=== PATIENT | male | born 1975 | race Two or more races ===

== ENCOUNTER 2024-03-26 11:17 | Emergency (ER) | payer MEDICAID, SELFPAY ==
--- NOTE | ~2024-03-26 | XR_ITS ---
EXAMINATION: XR FOOT, RIGHT CLINICAL INFORMATION: Pain COMPARISON: None available. TECHNIQUE: AP, lateral, and oblique views of the right foot. FINDINGS: The bones and soft tissues are normal. No fracture. Alignment is anatomic. Joint spaces are maintained. XR/XR foot RT min 3V IMPRESSION: No radiographic evidence of acute fracture or dislocation.
--- NOTE | 2024-03-26 11:26 | ED_ITS ---
HPI - General Adult General Chief complaint: General Medical Stated complaint: gout Time Seen by Provider: 03/26/24 15:14 History of Present Illness HPI narrative: Patient complains of left foot pain with a flare of his gout in the left 1st metatarsal area at the base of the big toe, it has been going on for 2-3 days, he denies any injury, he has no other complaint he has no other swollen joints Related Data Previous Rx's ?Medication ?Instructions ?Recorded metoprolol succinate 25 mg capsule 25 mg PO DAILY #30 ea 03/26/24 sprinkle, ext. release 24 hr naproxen 500 mg tablet (Naprosyn) 500 mg PO BID PRN pain #14 tabs 03/26/24 oxycodone 5 mg tablet 5 mg PO Q6H PRN pain #14 tabs 03/26/24 prednisone 20 mg tablet 60 mg (3 x 20 mg) PO DAILY 5 days 03/26/24 #15 tabs Allergies Allergy/AdvReac Type Severity Reaction Status Date / Time lisinopril Allergy Angioedema Verified 03/26/24 11:32 [facility] Past Medical History Source: nursing notes reviewed Social History Social History Advance Directives: No Advance Directives Information Provided: No Physical Exam ED Vital Signs: Vital Signs - 24 hr 03/26/24 11:27 Temperature 98.7 F Pulse Rate 125 H Respiratory Rate 18 Blood Pressure 181/126 H Pulse Oximetry 97 Oxygen Delivery Method Room Air BMI result Body Mass Index 30.1 Elevated blood pressure is noted general appearance is no distress, comfortable cooperative The head is normocephalic atraumatic Neck is supple Chest is clear to auscultation bilateral Heart no murmur Abdomen soft nontender Extremities full range of motion x4 including the left MTP joint which is red and swollen consistent with his history of gout, there is no pedal edema it is neurovascular intact distal Other extremities normal Cranial nerves 2-12 intact as tested, balance is normal he walks with a limping gait, motor is 5 over4 times 4 for sensation is intact and symmetrical, cerebellar exam is normal with [id number] Course Course Course Narrative: This is an RME: Additional HPI, ROS, PE not included below will be deferred to primary provider. RME assessment and note performed by: Lien Rick PA-C This is a 45-upfa-yxt-male, with hx of gout, who presents to the ER with complaints of right foot pain x2 days. No trauma or injury. He has a history of gout in symptoms feel similar. Patient states that he drinks alcohol daily. Tenderness palpation along the right 1st MTP with warmth. Patient's blood pressure 181/126, pulse 125, he is afebrile. He states that he drank alcohol last night. He states that he has not taken his blood pressure medication in 2 months. I stressed the importance of taking his blood pressure medicine as his blood pressure is very high. He is asymptomatic, denies any dizziness, blurred vision, chest pain. Plan: Labs, x-ray Patient with gout is treated with medicines that if worked for him before, I did not give the colchicine as he had some mild elevation of his LFTs He has a regular drinker so I advised him to see his doctor and discuss ways of safely quitting his daily alcohol consumption His pulse was noted to be tachycardic with a rate of around 120, bowel without a feeling of palpitations dizziness or chest pain He did say his pulse has been elevated before we did an EKG and today it was 120, EKG showed sinus tachycardia with a rate of 114, no acute ischemic changes or ST elevations, QT was 346 He had no chest pain no shortness of breath, he has no stroke symptoms he has no unilateral weakness,, he is not dehydrated and is drinking plenty of fluids his only complaint is the gout I discussed possible alcohol withdrawal and he had no tremor now and he is going to go home and have a drink so I did not treat him for possible alcohol withdrawal as he is not ready to quit now I did give him his metoprolol which he has not been taking and advised him to continue his blood pressure meds and follow closely with primary care doctor He is discharged with a diagnosis of sinus tachycardia, but without any evidence of ischemic change, possibly related to early alcohol withdrawal but no tremor He was treated for gout and he was discharged ambulating easily, with no evidence of stroke or heart attack, there is no hypertensive emergency Medications Administered Discontinued Medications Generic Name Dose Route Start Last Admin Trade Name Letha PRN Reason Stop Dose Admin Acetaminophen 975 mg 03/26/24 15:50 03/26/24 16:14 Acetaminophen 325 Mg Tablet PO 03/26/24 15:51 975 mg ONCE ONE Administration Colchicine 1.2 mg 03/26/24 15:50 03/26/24 16:14 Colchicine 0.6 Mg Tablet PO 03/26/24 15:51 Not Given ONCE ONE Metoprolol Succinate 25 mg 03/26/24 16:40 03/26/24 16:59 Metoprolol Succinate Er 25 Mg Tab.Er.24h PO 03/26/24 16:41 25 mg ONCE ONE Administration Protocol Naproxen 500 mg 03/26/24 15:50 03/26/24 16:14 Naproxen 500 Mg Tablet PO 03/26/24 15:51 500 mg ONCE ONE Administration Prednisone 60 mg 03/26/24 15:50 03/26/24 16:15 Prednisone 20 Mg Tablet PO 03/26/24 15:51 60 mg ONCE ONE Administration Medical Decision Making Lab Data [facility] Lab Attestation statement: I reviewed the patient's lab results. 03/26/24 11:55 03/26/24 11:55 Labs: Lab Results 03/26/24 Range/Units 11:55 WBC 10.7 (4.8-10.8) X10*3/uL RBC 4.77 (4.60-5.80) X10*6/uL Hgb 16.3 (14.0-18.0) g/dl Hct 45.8 (42.0-52.0) % MCV 96.0 (80.0-98.0) fL MCH 34.2 H (27.0-33.0) pg MCHC 35.6 (31.0-36.0) g/dl RDW 12.3 (11.0-16.0) % Plt Count 261 (160-400) X10*3/uL MPV 9.7 (9.4-12.4) fL Immature Gran % (Auto) 0.5 H (0.0-0.4) % Neut % (Auto) 72.1 (45-73) % Lymph % (Auto) 16.3 L (20-40) % [place] % (Auto) 8.0 (2-11) % Eos % (Auto) 2.1 (0-4) % Baso % (Auto) 1.0 (0-2) % Lymph # (Auto) 1.8 (1.2-4.9) X10*3/uL [place] # (Auto) 0.9 (0.1-1.2) X10*3/uL Eos # (Auto) 0.2 (0.0-0.4) X10*3/uL Baso # (Auto) 0.1 (0.0-0.2) X10*3/uL Abs Immat Gran (auto) 0.05 H (0.00-0.03) X10*3/uL Absolute Neuts (auto) 7.7 (2.0-8.3) x10*3/uL Absolute Nucleated RBC 0.000 (0.0-0.012) X10*3/uL Nucleated RBC % (auto) 0.0 (0.0-0.2) /100WBC ESR 4 (0-15) MM/HR Sodium 140 (135-145) mmol/L Potassium 4.1 (3.3-5.1) mmol/L Chloride 107 (96-108) mmol/L Carbon Dioxide 24 (22-29) mmol/L Anion Gap 13 (12-20) BUN 5 L (9-16) mg/dL Creatinine 0.84 (0.5-1.4) mg/dL Estim Creat Clear Calc 124.5 Estimated GFR > 60 Random Glucose 138 H (60-115) mg/dL Uric Acid 8.3 H (3.4-7.0) mg/dL Calcium 9.2 (8.4-10.2) mg/dL Total Bilirubin 0.8 (0.0-1.0) mg/dL AST 59 H (5-37) U/L ALT 85 H (0-40) U/L Alkaline Phosphatase 128 H (39-117) U/L C-Reactive Protein 0.28 (< or = 0.50) mg/dL Total Protein 7.5 (6.5-8.0) g/dL Albumin 4.1 (3.5-5.0) g/dL Ethyl Alcohol < 10 mg/dL Discharge Plan Discharge Clinical Impression: Gout flare Patient Disposition: Home, Self-Care Additional Instructions: your having a flare of her gout and we are treating it with your medications that you have used before which are prednisone Naprosyn Your liver enzymes were elevated possibly from alcohol use so I did not prescribe colchicine as in some cases it can make the liver worse Return any time if worse Follow with primary doctor you have not been taking your blood pressure medication regularly, and high blood pressure over the course of time can cause strokes heart disease blindness and many other serious problems so the best plan is to restart your blood pressure medicines which you said you have at home Your blood pressure was elevated at 1 80/126, this could be because of pain or stress in the ER so it should be rechecked when you are pain free and resting comfortably and taking your medications and if it continues to be high follow with her doctor to decide if you need an adjustment in blood pressure medication As you were unsure of the name and dose of 1 of your medicines call your primary doctor and he will give you a prescription for your other blood pressure medication Your heart rate was elevated in the emergency room, which can happen when a person is withdrawing from alcohol, and as you are drinking regularly and as your liver tests were already somewhat elevated you may want to consider stopping alcohol safely, there are places that can help you stop drinking and your doctor can help you with that Prescriptions: New prednisone 20 mg tablet 60 mg PO DAILY 5 Days Qty: 15 0RF naproxen [Naprosyn] 500 mg tablet 500 mg PO BID PRN (Reason: pain) Qty: 14 0RF oxycodone 5 mg tablet 5 mg PO Q6H PRN (Reason: pain) Qty: 14 0RF Rx Instructions: Partial Fill upon patient request. metoprolol succinate 25 mg capsule,alba,ER 24hr 25 mg PO DAILY Qty: 30 0RF Interventions: ED Discharge Assessment Last Done: 03/26/24 16:48 Discharge Date/Time: 03/26/24 17:06 Print Language: Indian
[2024-03-26 11:27] VITALS: BP 181/126; PULSE 125; RESP 18; TEMP 37.1; O2SAT 97; BMI 30.1
[2024-03-26 11:59] LABS: MANUAL DIFF FLAG NO
[2024-03-26 12:00] LABS: Basophils Absolute Auto 0.1 X10*3/uL (0.0-0.2); Eosinophils Absolute Auto 0.2 X10*3/uL (0.0-0.4); Eosinophils Percent Auto 2.1 % (0-4); Hematocrit 45.8 % (42.0-52.0); Hemoglobin 16.3 g/dl (14.0-18.0); Imm Gran Abs Auto 0.05 X10*3/uL (0.00-0.03); Imm Gran Pct Auto 0.5 % (0.0-0.4); Lymphocytes Absolute Auto 1.8 X10*3/uL (1.2-4.9); Lymphocytes Percent Auto 16.3 % (20-40); Mean Corpuscular HGB Conc 35.6 g/dl (31.0-36.0); Mean Corpuscular Hemoglobin 34.2 pg (27.0-33.0); Mean Platelet Volume 9.7 fL (9.4-12.4); Monocytes Absolute Auto 0.9 X10*3/uL (0.1-1.2); Neutrophils Absolute Auto 7.7 x10*3/uL (2.0-8.3); Neutrophils Percent Auto 72.1 % (45-73); Platelet Count 261 X10*3/uL (160-400); Red Blood Count 4.77 X10*6/uL (4.60-5.80); Red Cell Distribution Width 12.3 % (11.0-16.0); White Blood Count 10.7 X10*3/uL (4.8-10.8)
[2024-03-26 12:15] LABS: Alanine Aminotransferase 85 U/L (0-40); Albumin Level 4.1 g/dL (3.5-5.0); Alkaline Phosphatase 128 U/L (39-117); Anion Gap 13 (12-20); Aspartate Amino Transferase 59 U/L (5-37); Bilirubin Total 0.8 mg/dL (0.0-1.0); Blood Urea Nitrogen 5 mg/dL (9-16); C Reactive Protein 0.28 mg/dL (< or = 0.50); Calcium 9.2 mg/dL (8.4-10.2); Carbon Dioxide 24 mmol/L (22-29); Chloride 107 mmol/L (96-108); Creatinine Clr Calc Pharmacy 124.5; Estimated Glomerular Filt Rate > 60; Ethanol < 10 mg/dL; Glucose Random 138 mg/dL (60-115); Potassium 4.1 mmol/L (3.3-5.1); Sodium 140 mmol/L (135-145); Total Protein 7.5 g/dL (6.5-8.0); Uric Acid 8.3 mg/dL (3.4-7.0)
[2024-03-26 12:37] LABS: Erythrocyte Sedimentation Rate 4 MM/HR (0-15)
[2024-03-26 16:05] VITALS: BP 191/122; BP 200/128; PULSE 121; RESP 18; TEMP 36.2; O2SAT 97
--- NOTE | 2024-03-26 16:05 | ECG_ITS ---
Test Reason : TACYCARDIA Blood Pressure : / mmHG Vent. Rate : 114 BPM Atrial Rate : 114 BPM P-R Int : 132 ms QRS Dur : 096 ms QT Int : 346 ms P-R-T Axes : 044 -12 026 degrees QTc Int : 476 ms Sinus tachycardia with Fusion complexes Inferior infarct , age undetermined Abnormal ECG No previous ECGs available Referred By: Joshua Hernández Electronically Signed By:Misha Murrieta
--- NOTE | 2024-03-26 16:05 | PC.NURSE ---
when obtaining d/c vitals - pt found to be tachycardic as well as hypertensive. BP taken in both upper extremities. pt denies chest pain/palpitations. no sob/wob noted. respirations even and unlabored. provider notified/aware.
[2024-03-26] MEDS: NaPROXEN 500 MG TABLET PO (16:14)
[2024-03-26] MEDS: Acetaminophen 325 MG TABLET 975 MG PO (16:14)
[2024-03-26] MEDS: predniSONE 20 MG TABLET 60 MG PO (16:15)
--- NOTE | 2024-03-26 16:16 | PC.NURSE ---
pt medicated per provider order.
[2024-03-26 16:48] VITALS: BP 200/128; PULSE 121; RESP 18; TEMP 36.2; O2SAT 97
[2024-03-26] MEDS: Metoprolol Succinate ER 25 MG TAB.ER.24H PO (16:59)
--- NOTE | 2024-03-26 17:07 | PC.NURSE ---
pt medicated per provider order. provider okay w/ discharging pt with most recent vitals. pt provided w/ d/c instructions/paperwork.
== END 2024-03-26 17:06 | disposition home or self-care (01) ==
PROVIDERS: Physician Assistant Medical; Emergency Provider Student in an Organized Health Care Education/Training Program
DX: M10.9 Gout, unspecified (principal); M79.671 Pain in right foot; I10 Essential (primary) hypertension; Z91.148 Patient's other noncompliance with medication regimen for other reason
CPT/HCPCS: 36415; 73630; 80053; 80307; 84550; 85025; 85652; 86140; 93005; 99283; 99284

== ENCOUNTER → 2024-03-26 16:05 | Outpatient (BNV) | payer MEDICAID, SELFPAY | PROVIDERS: Emergency Provider Student in an Organized Health Care Education/Training Program; Visit Provider Internal Medicine Cardiovascular Disease | DX: R00.0 Tachycardia, unspecified (principal) | CPT/HCPCS: 93010 ==

== ENCOUNTER 2025-08-13 15:15 | Emergency (ER) | payer OTHER, SELFPAY ==
[2025-08-13] VITALS (7 sets, daily range): BP systolic 163–203; BP diastolic 102–140; PULSE 95–130; RESP 14–20; TEMP 36.6–36.8; O2SAT 96–98; BMI 34.0
--- NOTE | 2025-08-13 | ECG_ITS ---
Test Reason : HTN Blood Pressure : */* mmHG Vent. Rate : 120 BPM Atrial Rate : 120 BPM P-R Int : 142 ms QRS Dur : 84 ms QT Int : 340 ms P-R-T Axes : 6 16 6 degrees QTcB Int : 480 ms Sinus tachycardia Cannot rule out Anterior infarct , age undetermined Abnormal ECG When compared with ECG of 26-Mar-2024 16:19, Fusion complexes are no longer Present Referred By: Generic ED Physician Electronically Signed By: Misha Murrieta
--- NOTE | ~2025-08-13 | XR_ITS ---
CLINICAL HISTORY: pain 3 view left foot Comparison: None provided Findings: No fractures or dislocations. Well corticated irregularities in the 5th proximal phalanx are likely sequelae of remote trauma. Mild degenerative changes in the distal forefoot. Mild achilles tendon enthesopathy. No ankle effusion. No radiopaque foreign body. Diffuse dorsal soft tissue swelling. IMPRESSION: 1. Diffuse dorsal soft tissue swelling. 2. No acute fracture or dislocation. This document has been electronically signed by: Tracie Ahn DO on 08/13/2025 16:34:49
[2025-08-13 15:37] LABS: MANUAL DIFF FLAG NO
[2025-08-13 15:40] LABS: Hematocrit 46.2 % (42.0-52.0); Hemoglobin 16.4 g/dl (14.0-18.0); Imm Gran Abs Auto 0.07 X10*3/uL (0.00-0.03); Imm Gran Pct Auto 0.6 % (0.0-0.4); Lymphocytes Absolute Auto 1.2 X10*3/uL (1.2-4.9); Mean Corpuscular HGB Conc 35.5 g/dl (31.0-36.0); Mean Corpuscular Hemoglobin 33.4 pg (27.0-33.0); Mean Corpuscular Volume 94.1 fL (80.0-98.0); NRBC Abs Auto 0.000 X10*3/uL (0.0-0.012); NRBC Pct Auto 0.0 /100WBC (0.0-0.2); Platelet Count 197 X10*3/uL (160-400); Red Blood Count 4.91 X10*6/uL (4.60-5.80); White Blood Count 10.9 X10*3/uL (4.8-10.8)
[2025-08-13 16:02] LABS: Troponin-I High Sensitivity 4.8 ng/L (<3.5-35.0)
[2025-08-13 16:04] LABS: Alanine Aminotransferase 118 U/L (0-40); Albumin Level 4.2 g/dL (3.5-5.0); Alkaline Phosphatase 198 U/L (39-117); Anion Gap 15 (12-20); Aspartate Amino Transferase 97 U/L (5-37); Blood Urea Nitrogen 8 mg/dL (9-16); Calcium 9.1 mg/dL (8.4-10.2); Carbon Dioxide 23 mmol/L (22-29); Chloride 101 mmol/L (96-108); Creatinine Clr Calc Pharmacy 120.0; Estimated Glomerular Filt Rate > 60; Magnesium 1.7 mg/dL (1.6-2.6); Potassium 3.8 mmol/L (3.3-5.1); Sodium 135 mmol/L (135-145); Total Protein 7.7 g/dL (6.5-8.0); Uric Acid 8.7 mg/dL (3.4-7.0)
--- OUTSIDE RECORDS SUMMARY | 2025-08-13 16:17 | XMS_ITS | Clinical Summary ---
Author Organization [facility] Address [address] [place] [address] Phone Care Team Providers Care Bundle Shaker Name Role Phone Physician, Pcp Unknown Primary Care Provider June vailable Allergies No known active allergies Medications No known medications Active Problems No known active problems Social History Tobacco Use Types Packs/Day Years Used Date Smoking Tobacco: Never Assessed Sex and Gender Information Value Date Recorded Sex Assigned at Male 01/12/2025 7:19 AM EDT Legal Sex Male 6:35 AM EDT Gender Identity Male 01/12/2025 7:19 AM EDT Sexual Orientation Straight 01/12/2025 7: 19 AM EDT Obstetrics History Last Filed Vital Signs Vital Sign Reading Time Taken Comments Blood Pressure 157/101 01/12/2025 6:37 AM EDT Pulse 101 01/12/2025 6:37 AM EDT Temperature 36.5 C (97.7 F) 01/12/2025 6:37 AM EDT Respiratory Rate 18 01/12/2025 6:37 AM EDT Oxygen Saturation 98% 01/12/2025 6:37 AM EDT Inhaled Oxygen Concentration - - Weight 90.7 kg (200 lb) 01/12/2025 6:37 AM EDT Height 177.8 cm (5' 10 ) 01/12/2025 6:37 AM EDT Body Mass Index 28.7 01/12/2025 6:37 AM EDT Plan of Treatment Health Maintenance Due Date Last Done Comments Colorectal Cancer Screening: Colonoscopy 1975 Hepatitis A Vaccines (1 of 2 - Risk 2-dose series) 1994 Hepatitis B Vaccines (3 of 3 - 19+ 3-dose series) 05/30/2021 04/04/2021, 02/26/1996 Depression Screening 11/02/2024 Cholesterol Screening (Lipid Panel) 01/12/2025 HIV Screening 01/12/2025 Hepatitis C Screening 01/12/2025 Social Influencers of Health Screening 01/12/2025 Pneumococcal Vaccine: 50+ Years (1 of 1 - PCV) 2025 Zoster Vaccines (1 of 2) 2025 COVID-19 Vaccine (3 - 2024-2 6 season) 2025 11/20/2020, 10/30/2020 Influenza Vaccine (#1) 2025 DTaP,Tdap,and Td Vaccines (2 - Td or Tdap) 02/24/2028 02/23/2018 RSV Immunization Adult Patients (1 - 1-dose 75+ series) 2050 MMR Vaccines Aged Out 04/04/2021 No longer eligi ble based on patient's age to complete this topic HIB Vaccines Aged Out No longer eligi ble based on patient's age to complete this topic HPV Vaccines Aged Out No longer eligi ble based on patient's age to complete this topic IPV Vaccines Aged Out No longer eligi ble based on patient's age to complete this topic Meningococcal ACWY Vaccine Aged Out N o longer eligible based on patient's age to complete this topic Meningococcal B Vaccine Aged Out No l onger eligible based on patient's age to complete this topic RSV Immunization Patients Under 20 months Aged Out No longer eligible b ased on patient's age to complete this topic Varicella Vaccines Aged Out No longer eligible based on patient's age to complete this topic Insurance MEDICAID - [place] Care Teams Bundle Shaker Relationship Specialty Start Date End Date Physician, Pcp Unknown PCP - General 01/12/25
--- OUTSIDE RECORDS SUMMARY | 2025-08-13 16:17 | XMS_ITS | Clinical Summary ---
Author Organization [facility]ly [facility] Address [address] [facility] [address] [place] [id number] Phone Care Team Providers Care Chief Investigator Name Role Phone Pcp, Unknown Primary Care Provider Unavailabl e Pcp, Not Required Unavailable Unavailable Allergies No known active allergies Medications benzonatate (TESSALON) 100 MG capsule Take 2 capsules (200 mg total) by mouth 3 (three) times a day as needed for cough. 20 capsule 11/15/2017 Active Active Problems No known active problems Immunizations Immunization Administration Dates Next Due COVID-19 (Pre-08/24) Pfizer Vaccine, mRNA, PF ,10/30/2020 Hepatitis B Adult 04/04/2021,02/26/1996 MMR 04/04/2021 Tdap 02/23/2018 Social History Tobacco Use Types Packs/Day Years Used Date Smoking Tobacco: Never Alcohol Use Standard Drinks/Week Comments No 0 (1 standard drink = 0.6 oz pur e alcohol) Education Answer Date Recorded Are you interested in more education? Not on lizeth e 02/28/2023 Are you concerned about learning? Not on file 02/28/2023 No 02/28/2023 No 02/28/2023 Digital Access Answer Date Recorded No 03/28/2023 No 03/28/2023 No 03/28/2023 Reliable internet access at home? Not on file 03/28/2023 Device with a working camera? Not on file Sex and Gender Information Value Date Recorded Sex Assigned at Not on file Legal Sex Male 2:43 PM EDT Gender Identity Not on file Sexual Orientation Not on file Last Filed Vital Signs Vital Sign Reading Time Taken Comments Blood Pressure 156/88 11/15/2017 3:29 PM EST Pulse 71 11/15/2017 3:29 PM EST Temperature 37.1 C (98.7 F) 11/15/2017 3:29 PM EST Respiratory Rate 16 11/15/2017 4:37 PM EST Oxygen Saturation 98% 11/15/2017 3:29 PM EST Inhaled Oxygen Concentration - - Weight - - Height - - Body Mass Index - - Plan of Treatment Health Maintenance Due Date Last Done Comments LIPID PANEL 1975 DEPRESSION SCREENING 1987 HEPATITIS C SCREENING 1993 HIV ONE-TIME SCREENING (18-6 5 YEARS) 1993 SMOKING STATUS SCREENING (On ce After 26 Yrs) 2001 COLOGUARD 2020 COLONOSCOPY 2020 COLORECTAL CANCER SCREENING 2020 FIT TEST 2020 FOBT 2020 SIGMOIDOSCOPY 2020 VIRTUAL COLONOSCOPY 2020 PNEUMOCOCCAL VACCINES (50+ years) (1 of 1 - PCV) 2025 ZOSTER VACCINES (1 of 2) 2025 INFLUENZA VACCINE (#1) 2025 COVID-19 VACCINE (3 - 2024-2 6 season) 2025 11/20/2020, 10/30/2020 Adult Td,Tdap Booster 02/24/2028 02/23/2018 HEPATITIS A VACCINES Aged Out No long er eligible based on patient's age to complete this topic HIB VACCINES Aged Out No longer eligi ble based on patient's age to complete this topic MENINGOCOCCAL VACCINES (ACWY) Aged Out No longer eligible based on patient's age to complete this topic MENINGOCOCCAL VACCINES (B) Aged Out N o longer eligible based on patient's age to complete this topic Medical Devices Not on file Insurance [address] [place] [id number] [place] [address] [employer] [place] [place] [address] [place] [address] [address] [place] [address] [place] [address] [employer] Care Teams Chief Investigator Relationship Specialty Start Date End Date Pcp, Unknown PCP - General 04/02/21 Pcp, Not Required [address] [place] [id number] 04/02/21 Additional Source Comments The information contained in this document represents components of the legal health record. It is not the complete legal health record.[facility]ly [facility]
--- NOTE | 2025-08-13 16:29 | ED.GENADULT ---
HPI - General Adult General Chief complaint: General Medical Stated complaint: Gout flare up, HTN *220/150 ,non med compliant Time Seen by Provider: 08/13/25 16:29 Source: patient Mode of arrival: ambulatory Limitations: no limitations History of Present Illness ED Provider: Dr. Gibbons HPI narrative: This is a 50-year-old male history of arthritis, hypertension presented hospital today for pain in his left ankle. And left great toe. Patient is also complaining of left knee pain as well. He stated this is consistent with his previous flare of arthritis from gout in the past. He denies any fever. Patient has stated it is difficult for him to ambulate due to the pain. He has stated that his left ankle is significantly swollen. Related Data Previous Rx's ?Medication ?Instructions ?Recorded metoprolol succinate 25 mg capsule 25 mg PO DAILY #30 ea 03/26/24 sprinkle, ext. release 24 hr naproxen 500 mg tablet (Naprosyn) 500 mg PO BID PRN pain #14 tabs 03/26/24 oxycodone 5 mg tablet 5 mg PO Q6H PRN pain #14 tabs 03/26/24 prednisone 20 mg tablet 60 mg (3 x 20 mg) PO DAILY 5 days 03/26/24 #15 tabs allopurinol 100 mg tablet 100 mg PO DAILY 30 days #30 tabs 08/13/25 amlodipine 5 mg tablet 5 mg PO DAILY 30 days #30 tabs 08/13/25 colchicine 0.6 mg capsule 0.6 mg PO DAILY 4 days #4 caps 08/13/25 gabapentin 100 mg capsule 100 mg PO TID 7 days #21 caps 08/13/25 indomethacin 50 mg capsule 50 mg PO BID 7 days #14 caps 08/13/25 methylprednisolone 4 mg tablets in 4 mg PO PER PKG DIR #21 ea 08/13/25 a dose pack (Medrol (Gurpreet)) metoprolol succinate 25 mg 25 mg PO DAILY #30 tabs 08/13/25 tablet,extended release 24 hr omeprazole 20 mg capsule,delayed 20 mg PO DAILY 30 days #30 caps 08/13/25 release Allergies Allergy/AdvReac Type Severity Reaction Status Date / Time lisinopril Allergy Angioedema Verified 08/13/25 15:22 Review of Systems Review of Systems: Pertinent review of systems as mentioned in HPI. All other system otherwise negative. [facility] Past Medical History [facility] Narrative: Gouty arthritis, hypertension Social History Social History Smoked in Last 30 Days: No Use of substances other than those prescribed or required for medical reasons: No Advance Directives: No Advance Directives Information Provided: Yes Do you have a plan to hurt others: No Plan Physical Exam ED Exam Exam: General: Pleasant, no distress, interacting appropriately Head: Normacephalic, atraumatic ENT: oral mucosa moist, neck supple, no tracheal deviation Extremities: Swollen of the left ankle, swollen of the left great toe on exam. CMS intact otherwise in all 4 extremities. Neurological: Awake and alert, no facial droop noted Skin: Warm and dry Psychiatric: Appropriate mood and thoughts Vital Signs: Vital Signs - 24 hr 08/13/25 15:20 08/13/25 17:03 08/13/25 18:01 Temperature 98.3 F 98.1 F Pulse Rate 125 H 122 H 117 H Respiratory Rate 18 14 17 Blood Pressure 174/133 H 203/134 H 163/140 H Pulse Oximetry 96 98 96 Oxygen Delivery Method Room Air Room Air Room Air 08/13/25 19:54 08/13/25 20:00 08/13/25 20:57 Temperature 98.0 F Pulse Rate 95 97 100 Respiratory Rate 20 16 Blood Pressure 166/103 H 172/102 H 178/115 H Pulse Oximetry 97 Oxygen Delivery Method Room Air 08/13/25 23:04 Temperature 97.8 F Pulse Rate 111 H Respiratory Rate 18 Blood Pressure 181/118 H Pulse Oximetry 96 Oxygen Delivery Method Room Air BMI result Body Mass Index 34.0 Medications Administered Discontinued Medications Generic Name Dose Route Start Last Admin Trade Name Freq PRN Reason Stop Dose Admin Acetaminophen 975 mg 08/13/25 16:54 08/13/25 17:02 Acetaminophen 325 Mg Tablet PO 08/13/25 16:55 975 mg ONCE ONE Administration Amlodipine Besylate 5 mg 08/13/25 16:56 08/13/25 17:03 Amlodipine Besylate 5 Mg Tablet PO 08/13/25 16:57 5 mg ONCE ONE Administration Protocol Colchicine 1.2 mg 08/13/25 20:08 08/13/25 20:56 Colchicine 0.6 Mg Tablet PO 08/13/25 20:09 1.2 mg ONCE ONE Administration Sodium Chloride 1,000 mls @ 999 mls/hr 08/13/25 17:00 08/13/25 18:49 Ns IV 08/13/25 18:00 Infused .Q1H1M WIL Infusion Sodium Chloride 1,000 mls @ 999 mls/hr 08/13/25 20:30 08/13/25 23:29 Ns IV 08/13/25 21:30 0 mls/hr .Q1H1M WIL Infusion Ketorolac Tromethamine 15 mg 08/13/25 16:54 08/13/25 17:02 Ketorolac Tromethamine 15 Mg/Ml Vial IVPUSH 08/13/25 16:55 15 mg ONCE ONE Administration Lidocaine 1 patch 08/13/25 20:08 08/13/25 20:56 Lidocaine 4 % Patch Adh..Patch TRANSDERMA 08/13/25 20:09 1 patch ONCE ONE Administration Protocol Lorazepam 0.5 mg 08/13/25 20:35 08/13/25 20:55 Lorazepam 0.5 Mg Tablet PO 08/13/25 20:36 0.5 mg ONCE ONE Administration Metoprolol Succinate 25 mg 08/13/25 16:56 08/13/25 17:02 Metoprolol Succinate Er 25 Mg Tab.Er.24h PO 08/13/25 16:57 25 mg ONCE ONE Administration Protocol Metoprolol Succinate 25 mg 08/13/25 20:30 08/13/25 20:57 Metoprolol Succinate Er 25 Mg Tab.Er.24h PO 08/13/25 20:31 25 mg ONCE ONE Administration Protocol Oxycodone HCl 5 mg 08/13/25 20:17 08/13/25 20:56 Oxycodone Hcl Immed Release 5 Mg Tablet PO 08/13/25 20:18 5 mg ONCE ONE Administration Prednisone 40 mg 08/13/25 16:54 08/13/25 17:03 Prednisone 20 Mg Tablet PO 08/13/25 16:55 40 mg ONCE ONE Administration Medical Decision Making Medical Decision Making MDM Narrative: 50-year-old male presented hospital today for evaluation of left ankle pain, left knee pain, left great toe pain likely secondary to gout arthritis. On exam no sign of erythema, there was some swelling of the left ankle area. Patient does have tenderness around the left great toe. I suspect this is likely gouty arthritis. Patient does have range of motion of his left ankle. Low suspicion. Patient is noted to be tachycardic. I did give patient IV fluid. His tachycardia did resolve with IV fluid. Lab work did show slight leukocytosis 10.9. Otherwise patient does have elevated bilirubin level. Patient's does not have any abdominal tenderness. Patient's pain has improved with some IV Toradol, prednisone, lidocaine patch, did give patient a dose of colchicine as well. Patient is requesting refill of his hypertensive medication, requesting refill of gabapentin as well. Patient has lost his establishment with a primary care doctor. We will plan to refill the patient's medications. With the plan to send the patient home with colchicine course, indomethacin, and a Medrol Dosepak. Allopurinol will be given to the patient for uric acid control after the flare-up. Patient is agreement with this plan all questions were addressed. Patient will be discharged. Differential Diagnosis Differential Diagnoses: The differential diagnosis associated with the presentation includes Arthritis, septic arthritis, osteoarthritis, gout Lab Data MDM Lab Attestation statement: I reviewed the patient's lab results. 08/13/25 15:31 08/13/25 15:31 Labs: Lab Results 08/13/25 Range/Units 15:31 WBC 10.9 H (4.8-10.8) X10*3/uL RBC 4.91 (4.60-5.80) X10*6/uL Hgb 16.4 (14.0-18.0) g/dl Hct 46.2 (42.0-52.0) % MCV 94.1 (80.0-98.0) fL MCH 33.4 H (27.0-33.0) pg MCHC 35.5 (31.0-36.0) g/dl RDW 11.6 (11.0-16.0) % Plt Count 197 (160-400) X10*3/uL MPV 9.9 (9.4-12.4) fL Immature Gran % (Auto) 0.6 H (0.0-0.4) % Neut % (Auto) 75.8 H (45-73) % Lymph % (Auto) 11.0 L (20-40) % Collier % (Auto) 11.6 H (2-11) % Eos % (Auto) 0.4 (0-4) % Baso % (Auto) 0.6 (0-2) % Lymph # (Auto) 1.2 (1.2-4.9) X10*3/uL Collier # (Auto) 1.3 H (0.1-1.2) X10*3/uL Eos # (Auto) 0.0 (0.0-0.4) X10*3/uL Baso # (Auto) 0.1 (0.0-0.2) X10*3/uL Abs Immat Gran (auto) 0.07 H (0.00-0.03) X10*3/uL Absolute Neuts (auto) 8.3 (2.0-8.3) x10*3/uL Absolute Nucleated RBC 0.000 (0.0-0.012) X10*3/uL Nucleated RBC % (auto) 0.0 (0.0-0.2) /100WBC Sodium 135 (135-145) mmol/L Potassium 3.8 (3.3-5.1) mmol/L Chloride 101 (96-108) mmol/L Carbon Dioxide 23 (22-29) mmol/L Anion Gap 15 (12-20) BUN 8 L (9-16) mg/dL Creatinine 0.85 (0.5-1.4) mg/dL Estim Creat Clear Calc 120.0 Estimated GFR > 60 Random Glucose 168 H (60-115) mg/dL Uric Acid 8.7 H (3.4-7.0) mg/dL Calcium 9.1 (8.4-10.2) mg/dL Magnesium 1.7 (1.6-2.6) mg/dL Total Bilirubin 1.9 H (0.0-1.0) mg/dL AST 97 H (5-37) U/L ALT 118 H (0-40) U/L Alkaline Phosphatase 198 H (39-117) U/L Troponin I High Sens 4.8 (<3.5-35.0) ng/L Total Protein 7.7 (6.5-8.0) g/dL Albumin 4.2 (3.5-5.0) g/dL Ethyl Alcohol < 10 mg/dL Independent Interpretation I performed an independent interpretation of an: Plain X-Ray Radiology Impression Discussion of test interpretation with radiology: I have reviewed the radiologist's reading. Discharge Plan Discharge Clinical Impression: Gout, arthritis Patient Disposition: Home, Self-Care Instructions: Low Purine Diet (ED), Gout (ED) Additional Instructions: Wait until your gout flare up is better before taking the allopurinol. Adjust your diet as recommended. Prescriptions: New amlodipine 5 mg tablet 5 mg PO DAILY 30 Days Qty: 30 0RF gabapentin 100 mg capsule 100 mg PO TID 7 Days Qty: 21 0RF metoprolol succinate 25 mg tablet extended release 24 hr 25 mg PO DAILY Qty: 30 0RF colchicine 0.6 mg capsule 0.6 mg PO DAILY 4 Days Qty: 4 0RF indomethacin 50 mg capsule 50 mg PO BID 7 Days Qty: 14 0RF Rx Instructions: administer with food or milk allopurinol 100 mg tablet 100 mg PO DAILY 30 Days Qty: 30 0RF methylprednisolone [Medrol (Gurpreet)] 4 mg tablets,dose pack 4 mg PO PER PKG DIR Qty: 21 0RF omeprazole 20 mg capsule,delayed release(DR/EC) 20 mg PO DAILY 30 Days Qty: 30 0RF No Action prednisone 20 mg tablet 60 mg PO DAILY 5 Days Qty: 15 0RF naproxen [Naprosyn] 500 mg tablet 500 mg PO BID PRN (Reason: pain) Qty: 14 0RF oxycodone 5 mg tablet 5 mg PO Q6H PRN (Reason: pain) Qty: 14 0RF Rx Instructions: Partial Fill upon patient request. metoprolol succinate 25 mg capsule,sprinkle,ER 24hr 25 mg PO DAILY Qty: 30 0RF Referrals: [facility] [Provider Group, Internal Medicine] Stand Alone Forms: Work/School Release Print Language: Brazilian
[2025-08-13] MEDS: Metoprolol Succinate ER 25 MG TAB.ER.24H PO ×2 (17:02→20:57)
--- NOTE | 2025-08-13 17:05 | PC.NURSE ---
a&ox4. vss and up to date aside from being sinus tachycardic and hypertensive. pt biba from home c/o 08/11 atraumatic left foot pain radiating to left knee x thursday. pt reports hx of gout and believes it is a flare up - no prescription at home. pt also noted to be hypertensive at 220/150 - also noncompliant w/ BP medication x 6 months d/t insurance purposes. denies any chest pain/palpitations. daily ETOH - declines consumption today. CIWAs updated in worklist. 18gIV in the left AC via EMS - patent/intact. labs work obtained/sent to lab. ekg performed. IVF/medication administered per provider order. effectiveness pending. pt otherwise on RA w/o difficulty - no sob/wob noted. respirations even/unlabored. plan of care ongoing. call pedraza placed within reach.
--- NOTE | 2025-08-13 18:28 | PC.NURSE ---
pt remains hypertensive/sinus tachycardic on the monitor despite IVF/medication administration. provider notified/aware - no new orders at this time. pt otherwise continues to rest in no apparent distress. plan of care ongoing. call pedraza placed within reach.
--- NOTE | 2025-08-13 19:21 | PC.NURSE ---
this rn assumed care of pt, pt resting in stretcher, no acute distress noted, sinus tach on tele 100-103bpm
[2025-08-13] MEDS: oxyCODONE HCl Immed Release 5 MG TABLET PO (20:56)
[2025-08-13] MEDS: Lidocaine 4 % Patch ADH..PATCH 1 PATCH TRANSDERMA (20:56)
--- NOTE | 2025-08-13 21:01 | PC.NURSE ---
pt ambulatory to bathroom with steady gait. medicated per dec, tolerated whole well with water. iv fluids administering
--- NOTE | 2025-08-14 23:29 | PC.NURSE ---
Late entry: Pt reeived 500 ml Nacl bolus. Per Dr. Gibbons, fluids can be stopped and patient can be discharged.
== END 2025-08-13 23:30 | disposition home or self-care (01) ==
PROVIDERS: Emergency Provider Student in an Organized Health Care Education/Training Program
DX: M10.9 Gout, unspecified (principal); M19.072 Primary osteoarthritis, left ankle and foot; M79.672 Pain in left foot; I10 Essential (primary) hypertension
CPT/HCPCS: 36415; 73630; 80053; 80307; 83735; 84484; 84550; 85025; 93005; 96361; 96374; 99285; J1885

== ENCOUNTER → 2025-08-13 15:30 | Outpatient (BNV) | payer OTHER, SELFPAY | PROVIDERS: Emergency Provider Student in an Organized Health Care Education/Training Program; Visit Provider Internal Medicine Cardiovascular Disease | DX: R00.0 Tachycardia, unspecified (principal) | CPT/HCPCS: 93010 ==

== ENCOUNTER → 2025-08-13 15:51 | Outpatient (BNV) | payer OTHER, SELFPAY | PROVIDERS: Emergency Provider Student in an Organized Health Care Education/Training Program; Visit Provider Radiology Diagnostic Radiology | DX: M79.89 Other specified soft tissue disorders (principal) | CPT/HCPCS: 73630 ==